=== PATIENT | female | born 1975 | race Two or more races ===

== ENCOUNTER 2025-06-08 07:00 | Day surgery (SDC) | payer OTHER ==
[2025-06-02 08:20] VITALS: BP 103/72
[2025-06-02 09:03] LABS: BASO % 0.8 % (0.1-1.2); EOS # 0.10 (0.04-0.54); EOS % 1.6 % (0.7-7.0); LYMPH # 1.74 (1.18-3.74); LYMPH % 27.9 % (19.3-53.1); MEAN PLATELET VOLUME 10.20 fl (9.4-12.4); MONO # 0.38 (0.24-0.82); MONO % 6.1 % (4.7-12.5); NEUT # 3.94 (1.56-6.13); NEUT % 63.3 % (34.0-71.1); RED CELL DISTRIBUTION WIDTH 15.1 % (11.6-14.4)
[2025-06-02 09:05] LABS: URINE APPEARANCE Clear; URINE BILIRRUBIN Negative (NEGATIVE); URINE BLOOD Small; URINE COLOR Yellow; URINE GLUCOSE Negative (NEGATIVE); URINE KETONE Trace (NEGATIVE); URINE LEUKOCYTE Negative; URINE NITRATE Negative; URINE PROTEIN Negative (NEGATIVE); URINE UROBILINOGEN 0.2 E.U./dl
[2025-06-02 09:08] LABS: URINE BACTERIA 904.7 uL (0.0-1933); URINE EPITHELIAL CELLS 13.5 uL (0.0-38.8); URINE WBC 3.3 uL (0.0-23.2)
[2025-06-02 09:27] LABS: URINE CAST 0.00 uL (0.0-1.40); URINE RBC 1.0 uL (0.0-20.8)
[2025-06-02 09:31] LABS: ALT/SGPT 20.0 U/L (12-78); AST/SGOT 17.0 U/L (15-37); BILIRUBIN TOTAL 0.57 mg/dL (0.3-1.2); BUN CREA RATIO 24.0 (7.0-25.0); CREATININE SERUM 0.75 mg/dL (0.55-1.02); GFR 81.47; GLOBULINA 3.8 G/DL (2.4-3.5); GLUCOSE FASTING 87.0 mg/dL (65-100); OSMOLALITY SERUM 284.0 MOSM/KG (275-295)
[2025-06-02 09:44] LABS: INR 1.0
[~2025-06-08] VITALS: Ht 157.5 cm; Wt 68.5 kg
[2025-06-08] MEDS ORDERED: CEFAZOLIN SODIUM 1,000 MG VIAL ONE (07:45)
[2025-06-08] MEDS ORDERED: POVIDONE-IODINE 118 ML BOTT TOP ONE (08:40)
[2025-06-08] MEDS ORDERED: IBU600 MG PO (13:49)
[2025-06-08] MEDS ORDERED: DOXYCYCLINE HY100 M2 PO (13:49)
== END 2025-06-08 16:00 | disposition home or self-care (01) ==
LOC: CIR.AMB 07:00
PROVIDERS: ATTEND Obstetrics & Gynecology
DX: N85.02 Endometrial intraepithelial neoplasia [EIN] (principal); D25.0 Submucous leiomyoma of uterus

== ENCOUNTER 2025-07-21 07:30 | Inpatient (IN) | payer OTHER ==
[~2025-07-21] VITALS: Ht 160 cm; Wt 66.2 kg
[~2025-07-21 07:30] MED LIST: DOXYCYCLINE HY100 M2 PO; IBU600 MG PO
[2025-07-21] MEDS ORDERED: PROMETRIUM200 MG PO (08:12)
[2025-07-21] MEDS ORDERED: LIPITOR40 MG (08:12)
[2025-07-21] MEDS ORDERED: MAXFE CAPLET1 EAC1 PO (08:13)
[2025-07-21 08:35] LABS: BASO % 0.6 % (0.1-1.2); EOS # 0.09 (0.04-0.54); EOS % 1.3 % (0.7-7.0); LYMPH # 1.69 (1.18-3.74); LYMPH % 23.6 % (19.3-53.1); MEAN PLATELET VOLUME 9.30 fl (9.4-12.4); MONO # 0.37 (0.24-0.82); MONO % 5.2 % (4.7-12.5); NEUT # 4.95 (1.56-6.13); NEUT % 68.9 % (34.0-71.1); RED CELL DISTRIBUTION WIDTH 15.1 % (11.6-14.4)
[2025-07-21 08:56] LABS: URINE APPEARANCE Turbid; URINE BILIRRUBIN Negative (NEGATIVE); URINE BLOOD Negative; URINE COLOR Yellow; URINE GLUCOSE Negative (NEGATIVE); URINE KETONE Negative (NEGATIVE); URINE LEUKOCYTE Trace; URINE NITRATE Negative; URINE PROTEIN Negative (NEGATIVE); URINE UROBILINOGEN 1.0 E.U./dl
[2025-07-21 08:58] LABS: URINE BACTERIA 107.9 uL (0.0-1933); URINE EPITHELIAL CELLS 19.5 uL (0.0-38.8); URINE WBC 2.3 uL (0.0-23.2)
[2025-07-21 09:06] LABS: URINE CAST 0.43 uL (0.0-1.40); URINE RBC 1.6 uL (0.0-20.8)
[2025-07-21 09:06] LABS: INR 0.98
[2025-07-21 09:07] VITALS: BP 99/56
[2025-07-21 09:09] VITALS: BP 109/72
[2025-07-21 09:33] LABS: ALT/SGPT 29.0 U/L (12-78); AST/SGOT 21.0 U/L (15-37); BILIRUBIN TOTAL 0.8 mg/dL (0.3-1.2); BUN CREA RATIO 24.0 (7.0-25.0); CREATININE SERUM 0.75 mg/dL (0.55-1.02); GFR 81.47; GLOBULINA 2.9 G/DL (2.4-3.5); GLUCOSE FASTING 92.0 mg/dL (65-100); OSMOLALITY SERUM 283.0 MOSM/KG (275-295)
[2025-07-27] MEDS ORDERED: METRONIDAZOLE/SODIUM CHLORIDE 500 MG/100 ML PIGGYBACK IV ONE (10:57)
[2025-07-27] MEDS ORDERED: CEFOXITIN SODIUM 2,000 MG VIAL IV ONE (10:57)
[2025-07-27] MEDS ORDERED: MORPHINE SULFATE 4 MG/ML CARTRIDGE IV PRN (15:45)
[2025-07-27] MEDS ORDERED: ONDANSETRON HCL 2 MG/ML VIAL IV PRN (15:45)
[2025-07-27] MEDS ORDERED: RINGERS SOLUTION,LACTATED 1,000 ML IV SCH (15:45)
[2025-07-27] MEDS ORDERED: KETOROLAC TROMETHAMINE 30 MG VIAL IV PRN (16:00)
[2025-07-27] MEDS ORDERED: SIMETHICONE 125 MG CAPSULE PO SCH (18:00)
[2025-07-27 18:05] VITALS: BP 99/56
[2025-07-27] MEDS ORDERED: FAMOTIDINE/PF 20 MG/2 ML VIAL IV SCH (21:00)
[2025-07-27 23:06] LABS: BASO % 0.2 % (0.1-1.2); EOS # 0.00 (0.04-0.54); EOS % 0.0 % (0.7-7.0); LYMPH # 0.90 (1.18-3.74); LYMPH % 4.7 % (19.3-53.1); MEAN PLATELET VOLUME 9.70 fl (9.4-12.4); MONO # 0.40 (0.24-0.82); MONO % 2.1 % (4.7-12.5); NEUT # 17.54 (1.56-6.13); NEUT % 92.6 % (34.0-71.1); RED CELL DISTRIBUTION WIDTH 15.2 % (11.6-14.4)
[2025-07-28 01:01] VITALS: BP 102/64
[2025-07-28 04:30] VITALS: BP 106/64
[2025-07-28] MEDS ORDERED: ACETAMINOPHEN WITH CODEINE 1 UDTAB TABLET PO PRN (06:00)
[2025-07-28 08:00] VITALS: BP 92/60
[2025-07-28] MEDS ORDERED: NAPROXEN 500 MG TABLET PO PRN (09:00)
[2025-07-28] MEDS ORDERED: ACETAMINOPHEN-1 EAC2 PO (09:31)
[2025-07-28] MEDS ORDERED: NAPROXEN500 MG PO (09:31)
== END 2025-07-28 10:41 | disposition home or self-care (01) | DRG 743 ==
LOC: OB/GYN 07-27 07:30 → O/R 07-27 09:00 → OB/GYN 07-27 13:15
PROVIDERS: Obstetrics & Gynecology Gynecologic Oncology; ADMIT Obstetrics & Gynecology; ATTEND Obstetrics & Gynecology
PROC: 0UT2FZZ Resection of Bilateral Ovaries, Via Natural or Artificial Opening With Percutaneous Endoscopic Assistance (ICD-10-PCS; 2025-07-27)
PROC: 07BC4ZZ Excision of Pelvis Lymphatic, Percutaneous Endoscopic Approach (ICD-10-PCS; 2025-07-27)
PROC: 0TJB8ZZ Inspection of Bladder, Via Natural or Artificial Opening Endoscopic (ICD-10-PCS; 2025-07-27)
PROC: 0UT9FZZ Resection of Uterus, Via Natural or Artificial Opening With Percutaneous Endoscopic Assistance (ICD-10-PCS; principal; 2025-07-27 13:15)
PROC: 0UT7FZZ Resection of Bilateral Fallopian Tubes, Via Natural or Artificial Opening With Percutaneous Endoscopic Assistance (ICD-10-PCS; 2025-07-27 13:15)
DX: D25.0 Submucous leiomyoma of uterus (principal); N80.03 Adenomyosis of the uterus; D27.1 Benign neoplasm of left ovary; D27.0 Benign neoplasm of right ovary; D36.0 Benign neoplasm of lymph nodes; R10.20 Pelvic and perineal pain unspecified side; N92.1 Excessive and frequent menstruation with irregular cycle; N81.11 Cystocele, midline